=== PATIENT | female | born 1975 | race Caucasian/White ===

== ENCOUNTER 2019-09-28 03:44 | Observation (INO) ==
[2019-09-28] MEDS ORDERED: ONDANSETRON 4 MG/2 ML VIAL IV STA (04:08)
[2019-09-28] MEDS ORDERED: SODIUM CHLORIDE 0.9% 500 ML IV STA (04:08)
[2019-09-28 04:20] LABS: Basophils # 0.1 10*3/uL (0.0-0.2); Basophils % 0.7 % (0.0-0.8); Eosinophils # 0.1 10*3/uL (0.0-0.87); Eosinophils % 2.1 % (0.00-10.9); Hematocrit 29.6 VOL% (35.7-47.0); Hemoglobin 9.5 GM/DL (12.0-16.0); Immature Granulocytes % 0.4 %; Immature Granulocytes Absolute 0.03 #; Lymphocytes # 1.6 10*3/uL (1.4-4.0); Lymphocytes % 23.2 % (21.3-54.2); Mean Corpuscular HGB Conc 32.1 GM/DL (32-36); Mean Corpuscular Volume 90.5 FL (87-102); Mean Platelet Volume 8.9 FL (9.6-12.0); Monocytes % 17.9 % (1.7-12.7); Neutrophils % 55.7 % (38.7-73.9); Platelet Count 152 T/CUMM (130-400); Red Blood Count 3.27 MC/CUMM (3.8-5.5); Red Cell Distribution Width 14.6 % (9.3-17.3); White Blood Count 6.7 T/CUMM (4-12)
[2019-09-28 04:37] LABS: Albumin 1.6 G/DL (3.4-5.0); Bilirubin,Total 0.4 MG/DL (0.2-1.0); Calcium 7.6 MG/DL (8.5-10.1); Osmolality,Calculated 262.4 MOS/KG (273-304); Total Protein 6.3 G/DL (6.4-8.3)
[2019-09-28 05:23] LABS: Apearance,Urine CLOUDY (Clear); Bilirubin,Urine Negative (Negative); Blood, Urine Large mg/dL (Negative); Glucose,Urine (UA) Negative (Negative); Ketones,Urine Negative (Negative); Mucus,Urine Few /LPF (Occasional); Nitrite,Urine Negative (Negative); Protein,Urine >=500 MG/DL; RBC,Urine 129 /HPF (0-4); Urine Color Amber (Yellow); Urine Specific Gravity 1.016 (1.001-1.035); Urine Urobilinogen < 2.0 EU/DL (0.2-1.0); WBC,Urine 298 /HPF (0-6)
[2019-09-28] MEDS ORDERED: ACETAMINOPHEN 325 MG TABLET PO PRN (05:34)
[2019-09-28] MEDS ORDERED: ONDANSETRON 4 MG/2 ML VIAL IV PRN (05:34)
[2019-09-28] MEDS ORDERED: GLUCAGON 1 MG VIAL IM PRN (05:34)
[2019-09-28] MEDS ORDERED: DEXTROSE 50% 25 GM/50 ML VIAL IV PRN (05:34)
[2019-09-28] MEDS ORDERED: POTASSIUM CHLORIDE 20 MEQ/15 ML UDCUP PO ONE (05:42)
[2019-09-28] MEDS ORDERED: cefTRIAXone 1,000 MG in SODIUM CHLORIDE 0.9% 100 ML IV STA (05:42)
[2019-09-28] MEDS ORDERED: PROMETHAZINE 25 MG/1 ML VIAL IM PRN (05:45)
[2019-09-28 07:19] LABS: ABG Base Excess 6.1 MMOL/L (-2.5-2.5); ABG HCO3 29.9 MMOL/L (20-26); ABG Oxygen Saturation 91.5 % (95-100); ABG PCO2 52.7 MM HG (35-48); ABG PH 7.393 (7.35-7.45); ABG PO2 62.3 MM HG (80-95); ABG TCO2 29.7 MMOL/L (23-27); Allen Test Positive
[2019-09-28 08:43] LABS: Eosinophils 2 % (0-10); Hypochromasia 2+; Lymphocytes 22 % (20-55); Platelet Estimate Adequate; Polychromasia Slight; Schistocytes Slight; Segmented Neutrophils 63 % (50-85); Stomatocytes Slight; Total Cells Counted 100
[2019-09-28] MEDS ORDERED: PANTOPRAZOLE 40 MG TABLET PO SCH (09:00)
[2019-09-28] MEDS: ESCITALOPRAM 10 MG TABLET PO SCH (11:40)
[2019-09-28] MEDS: PANTOPRAZOLE 40 MG TABLET PO SCH ×2 (11:40→20:06)
[2019-09-28] MEDS: MULTIVITAMIN (CENTRUM) TABLET PO SCH (11:40)
[2019-09-28] MEDS ORDERED: hydrALAZINE 20 MG/1 ML VIAL IV PRN (13:14)
[2019-09-28] MEDS: FERROUS SULFATE 325 MG TABLET PO SCH ×2 (15:37→20:06)
[2019-09-28] MEDS: RIFAXIMIN 200 MG PO SCH ×2 (15:37→20:06)
[2019-09-28] MEDS: oxyCODONE/ACETAMINOPHEN 5-325 MG TABLET PO PRN ×2 (19:55→23:56)
[2019-09-29] MEDS: oxyCODONE/ACETAMINOPHEN 5-325 MG TABLET PO PRN (04:02)
[2019-09-29] MEDS ORDERED: cefTRIAXone 1,000 MG in SODIUM CHLORIDE 0.9% 100 ML IV SCH (06:30)
[2019-09-29 07:13] LABS: Alanine Aminotransferase 14 U/L (13-56); Albumin 1.6 G/DL (3.4-5.0); Alkaline Phosphatase 99 U/L (45-117); Aspartate Amino Transferase 23 U/L (0-37); Bilirubin,Total < 0.39 MG/DL (0.2-1.0); Blood Urea Nitrogen 16 MG/DL (7-18); Calcium 7.8 MG/DL (8.5-10.1); Estimated Glom Filtration Rate 19 ML/MIN; Glucose 70 MG/DL (74-106); Osmolality,Calculated 260.7 MOS/KG (273-304); Total Protein 5.9 G/DL (6.4-8.3)
[2019-09-29 07:21] LABS: Basophils # 0.1 10*3/uL (0.0-0.2); Basophils % 1.4 % (0.0-0.8); Eosinophils # 0.2 10*3/uL (0.0-0.87); Eosinophils % 3.7 % (0.00-10.9); Hematocrit 30.4 VOL% (35.7-47.0); Hemoglobin 9.5 GM/DL (12.0-16.0); Immature Granulocytes % 0.5 %; Immature Granulocytes Absolute 0.03 #; Lymphocytes # 1.5 10*3/uL (1.4-4.0); Lymphocytes % 25.8 % (21.3-54.2); Mean Corpuscular HGB Conc 31.3 GM/DL (32-36); Mean Corpuscular Volume 91.3 FL (87-102); Mean Platelet Volume 8.8 FL (9.6-12.0); Monocytes % 15.9 % (1.7-12.7); Neutrophils % 52.7 % (38.7-73.9); Platelet Count 175 T/CUMM (130-400); Red Blood Count 3.33 MC/CUMM (3.8-5.5); Red Cell Distribution Width 14.6 % (9.3-17.3); White Blood Count 5.7 T/CUMM (4-12)
[2019-09-29 08:33] LABS: Anisocytosis 1+; Band Neutrophils 4 % (0-10); Eosinophils 3 % (0-10); Hypochromasia 2+; Lymphocytes 26 % (20-55); Macrocytosis 1+; Platelet Estimate Normal; Segmented Neutrophils 53 % (50-85); Total Cells Counted 100
[2019-09-29] MEDS: MULTIVITAMIN (CENTRUM) TABLET PO SCH (08:57)
[2019-09-29] MEDS: FERROUS SULFATE 325 MG TABLET PO SCH ×2 (08:57→15:46)
[2019-09-29] MEDS: ESCITALOPRAM 10 MG TABLET PO SCH (08:58)
[2019-09-29] MEDS: PANTOPRAZOLE 40 MG TABLET PO SCH (08:58)
[2019-09-29] MEDS ORDERED: CETIRIZINE 10 MG TABLET PO SCH (09:00)
[2019-09-29] MEDS ORDERED: CIPROFLOXACIN 500 MG TABLET PO SCH (09:00)
[2019-09-29] MEDS: RIFAXIMIN 200 MG PO SCH ×2 (10:28→15:46)
[2019-09-29] MEDS ORDERED: POTASSIUM CHLORIDE 20 MEQ TABLET PO ONE (10:43)
[2019-09-29 16:13] VITALS: BP 109/61
== END 2019-09-29 18:18 | disposition left against medical advice (07) ==
LOC: EDBD → EDUNIT# → N.EDINP 03:44 → N.ED 03:44 → SUATTDRO 07:43 → N.EDINP 09:35 → N.TELES 09:50
PROVIDERS: ADMIT Internal Medicine; ATTEND Internal Medicine

== ENCOUNTER 2019-10-02 22:28 | Observation (INO) ==
[2019-10-03] MEDS ORDERED: HYDROmorphone 2 MG/1 ML VIAL IV STA (02:19)
[2019-10-03] MEDS ORDERED: PANTOPRAZOLE 40 MG VIAL IV STA (02:19)
[2019-10-03] MEDS ORDERED: hydrALAZINE 20 MG/1 ML VIAL IV STA (02:19)
[2019-10-03] MEDS ORDERED: ONDANSETRON 4 MG/2 ML VIAL IV STA (02:19)
[2019-10-03 02:54] LABS: Basophils % 0.5 % (0.0-0.8); Eosinophils # 0.1 10*3/uL (0.0-0.87); Eosinophils % 1.4 % (0.00-10.9); Hematocrit 32.4 VOL% (35.7-47.0); Hemoglobin 10.5 GM/DL (12.0-16.0); Immature Granulocytes % 0.6 %; Immature Granulocytes Absolute 0.05 #; Lymphocytes # 1.1 10*3/uL (1.4-4.0); Lymphocytes % 13.4 % (21.3-54.2); Mean Corpuscular HGB Conc 32.4 GM/DL (32-36); Mean Corpuscular Volume 87.3 FL (87-102); Mean Platelet Volume 8.6 FL (9.6-12.0); Neutrophils % 72.1 % (38.7-73.9); Platelet Count 159 T/CUMM (130-400); Red Blood Count 3.71 MC/CUMM (3.8-5.5); Red Cell Distribution Width 14.5 % (9.3-17.3); White Blood Count 7.8 T/CUMM (4-12)
[2019-10-03 03:15] LABS: Alanine Aminotransferase 18 U/L (13-56); Albumin 1.9 G/DL (3.4-5.0); Alkaline Phosphatase 172 U/L (45-117); Amylase 55 U/L (25-115); Aspartate Amino Transferase 37 U/L (0-37); Blood Urea Nitrogen 36 MG/DL (7-18); Calcium 7.9 MG/DL (8.5-10.1); Estimated Glom Filtration Rate 12 ML/MIN; Glucose 82 MG/DL (74-106); Osmolality,Calculated 257.5 MOS/KG (273-304); Total Protein 6.7 G/DL (6.4-8.3)
[2019-10-03] MEDS ORDERED: DEXTROSE 50% 25 GM/50 ML VIAL IV PRN (05:45)
[2019-10-03] MEDS ORDERED: ACETAMINOPHEN 325 MG TABLET PO PRN (05:45)
[2019-10-03] MEDS ORDERED: guaiFENesin/DM ER 600-30 MG TABLET PO PRN (05:45)
[2019-10-03] MEDS ORDERED: GLUCAGON 1 MG VIAL IM PRN (05:45)
[2019-10-03] MEDS ORDERED: diphenhydrAMINE CAP 25 MG CAPSULE PO PRN (05:45)
[2019-10-03] MEDS ORDERED: hydrALAZINE 20 MG/1 ML VIAL IV PRN (05:45)
[2019-10-03] MEDS ORDERED: NICOTINE 21 MG/24 HR PATCH TRANSDERM PRN (05:45)
[2019-10-03] MEDS ORDERED: SODIUM CHLORIDE 0.9% 1,000 ML IV SCH (06:00)
[2019-10-03] MEDS: MORPHINE 4 MG/1 ML VIAL IV PRN ×2 (08:28→12:36)
[2019-10-03] MEDS: ONDANSETRON 4 MG/2 ML VIAL IV PRN ×4 (08:31→20:27)
[2019-10-03 08:46] LABS: INR 1.1; PT Patient Result 11.7 SECS (9.8-11.9)
[2019-10-03 10:07] LABS: Amorphous Crystals,Urine Few /HPF (Few); Apearance,Urine Slightly Hazy (Clear); Bacteria,Urine Occasional /HPF (Few); Bilirubin,Urine Negative (Negative); Blood, Urine Moderate mg/dL (Negative); Glucose,Urine (UA) Negative (Negative); Ketones,Urine Negative (Negative); Mucus,Urine Occasional /LPF (Occasional); Nitrite,Urine Negative (Negative); Protein,Urine 100 MG/DL; RBC,Urine 21 /HPF (0-4); Squamous Epithelial Cell,Urine Occasional /HPF (0-10); Urine Color Yellow (Yellow); Urine Specific Gravity 1.008 (1.001-1.035); Urine Urobilinogen < 2.0 EU/DL (0.2-1.0); WBC,Urine <1 /HPF (0-6)
[2019-10-03 10:13] LABS: Barbiturates Screen,Urine Negative (Negative); Benzodiazepines Screen,Urine Positive (Negative); Cannabinoid Screen,Urine Negative (Negative); Opiate Screen,Urine Negative (Negative); Phencyclidine Screen,Urine Negative (Negative)
[2019-10-03 14:57] LABS: Lymphocytes,Pleural Fluid 79 %; Monocytes,Pleural Fluid 9 %; Neutrophils,Pleural Fluid 12 %; RBC,Pleural Fluid 17935 T/CUMM
[2019-10-03] MEDS: HYDROmorphone 2 MG/1 ML VIAL IV PRN ×2 (16:26→20:28)
[2019-10-04] MEDS: ONDANSETRON 4 MG/2 ML VIAL IV PRN ×2 (00:59→21:12)
[2019-10-04] MEDS: HYDROmorphone 2 MG/1 ML VIAL IV PRN ×4 (01:00→21:13)
[2019-10-04 05:25] LABS: Basophils # 0.1 10*3/uL (0.0-0.2); Basophils % 0.4 % (0.0-0.8); Eosinophils # 0.1 10*3/uL (0.0-0.87); Eosinophils % 0.4 % (0.00-10.9); Hematocrit 31.4 VOL% (35.7-47.0); Immature Granulocytes Absolute 0.11 #; Lymphocytes # 0.6 10*3/uL (1.4-4.0); Lymphocytes % 5.5 % (21.3-54.2); Mean Corpuscular HGB Conc 31.8 GM/DL (32-36); Mean Platelet Volume 8.3 FL (9.6-12.0); Neutrophils % 84.7 % (38.7-73.9); Platelet Count 216 T/CUMM (130-400); Red Blood Count 3.53 MC/CUMM (3.8-5.5); Red Cell Distribution Width 14.7 % (9.3-17.3); White Blood Count 11.2 T/CUMM (4-12)
[2019-10-04 05:45] LABS: Calcium 8.2 MG/DL (8.5-10.1); Osmolality,Calculated 264.1 MOS/KG (273-304)
[2019-10-04 05:53] LABS: Albumin 1.8 G/DL (3.4-5.0); Bilirubin,Total 0.7 MG/DL (0.2-1.0); Calcium 8.1 MG/DL (8.5-10.1); Osmolality,Calculated 264.1 MOS/KG (273-304); Total Protein 6.8 G/DL (6.4-8.3)
[2019-10-04] MEDS ORDERED: SODIUM CHLORIDE 0.65% NASAL SPRAY 45 ML BOTTLE BOTH NARES PRN (06:53)
[2019-10-04] MEDS ORDERED: HEPARIN 10,000 UNIT/10 ML VIAL IV PRN (13:11)
[2019-10-04] MEDS: ALPRAZolam 0.25 MG TABLET PO PRN ×2 (16:46→20:31)
[2019-10-04] MEDS: RIFAXIMIN 200 MG PO SCH (20:28)
[2019-10-04] MEDS: FERROUS SULFATE 325 MG TABLET PO SCH (20:28)
[2019-10-04] MEDS: PANTOPRAZOLE 40 MG TABLET PO SCH (20:28)
[2019-10-04] MEDS ORDERED: hydrALAZINE 10 MG TABLET PO SCH (21:00)
[2019-10-05] MEDS: ALPRAZolam 0.25 MG TABLET PO PRN (02:54)
[2019-10-05] MEDS: ONDANSETRON 4 MG/2 ML VIAL IV PRN (03:59)
[2019-10-05] MEDS: HYDROmorphone 2 MG/1 ML VIAL IV PRN ×2 (04:00→08:45)
[2019-10-05 04:19] VITALS: BP 123/73
[2019-10-05 06:46] LABS: Calcium 7.9 MG/DL (8.5-10.1); Osmolality,Calculated 266.4 MOS/KG (273-304)
[2019-10-05] MEDS: FERROUS SULFATE 325 MG TABLET PO SCH (08:41)
[2019-10-05] MEDS: PANTOPRAZOLE 40 MG TABLET PO SCH (08:41)
[2019-10-05] MEDS: RIFAXIMIN 200 MG PO SCH (08:43)
[2019-10-05] MEDS ORDERED: CHOLECALCIFEROL 400 UNIT TABLET PO SCH (09:00)
[2019-10-05] MEDS ORDERED: hydrALAZINE 10 MG TABLET PO SCH (09:00)
[2019-10-05] MEDS ORDERED: ESCITALOPRAM 10 MG TABLET PO SCH (09:00)
[2019-10-05] MEDS ORDERED: oxyCODONE IR 5 MG TABLET PO PRN (09:32)
== END 2019-10-05 11:23 | disposition home health service (06) ==
LOC: N.EDINP 22:28 → N.ED 22:28 → N.3E 10-03 06:39
PROVIDERS: ADMIT Hospitalist; ATTEND Hospitalist
PROC: IRTHORA (2019-10-03 09:40)

== ENCOUNTER 2019-10-30 00:53 | Inpatient (IN) ==
[2019-10-30] MEDS ORDERED: ALBUTEROL/IPRATROPIUM 3 ML NEB RESP TX STA (01:16)
[2019-10-30] MEDS ORDERED: ONDANSETRON 4 MG/2 ML VIAL IV STA (01:16)
[2019-10-30] MEDS ORDERED: hydrALAZINE 20 MG/1 ML VIAL IV STA ×2 (01:16→03:28)
[2019-10-30] MEDS ORDERED: FUROSEMIDE 100 MG/10 ML VIAL IV STA (01:16)
[2019-10-30] MEDS ORDERED: methylPREDNISolone SOD SUC 125 MG/2 ML VIAL IV STA (01:16)
[2019-10-30 02:57] LABS: INR 1.1; PT Patient Result 11.9 SECS (9.8-11.9)
[2019-10-30 03:05] LABS: Basophils # 0.1 10*3/uL (0.0-0.2); Basophils % 0.5 % (0.0-0.8); Eosinophils % 0.3 % (0.00-10.9); Hematocrit 28.4 VOL% (35.7-47.0); Hemoglobin 8.9 GM/DL (12.0-16.0); Immature Granulocytes % 2.8 %; Immature Granulocytes Absolute 0.29 #; Lymphocytes # 1.2 10*3/uL (1.4-4.0); Lymphocytes % 11.9 % (21.3-54.2); Mean Corpuscular HGB Conc 31.3 GM/DL (32-36); Mean Corpuscular Volume 85.8 FL (87-102); Mean Platelet Volume 8.4 FL (9.6-12.0); Monocytes % 6.9 % (1.7-12.7); NRBC # 0.03 10*3/uL; Neutrophils % 77.6 % (38.7-73.9); Platelet Count 203 T/CUMM (130-400); Red Blood Count 3.31 MC/CUMM (3.8-5.5); Red Cell Distribution Width 18.5 % (9.3-17.3); White Blood Count 10.2 T/CUMM (4-12)
[2019-10-30 03:06] LABS: Alanine Aminotransferase 12 U/L (13-56); Albumin 1.8 G/DL (3.4-5.0); Alkaline Phosphatase 135 U/L (45-117); Aspartate Amino Transferase 27 U/L (0-37); Blood Urea Nitrogen 22 MG/DL (7-18); Calcium 8.4 MG/DL (8.5-10.1); Estimated Glom Filtration Rate 15 ML/MIN; Glucose 83 MG/DL (74-106); Osmolality,Calculated 259.9 MOS/KG (273-304); Total Protein 6.8 G/DL (6.4-8.3)
[2019-10-30] MEDS ORDERED: KETOROLAC 30 MG/1 ML VIAL IV STA (03:08)
[2019-10-30] MEDS ORDERED: HYDROmorphone 2 MG/1 ML VIAL IV ONE (03:08)
[2019-10-30] MEDS ORDERED: GLUCAGON 1 MG VIAL IM PRN (03:45)
[2019-10-30] MEDS ORDERED: DEXTROSE 50% 25 GM/50 ML VIAL IV PRN (03:45)
[2019-10-30] MEDS ORDERED: hydrALAZINE 20 MG/1 ML VIAL IV PRN (04:15)
[2019-10-30] MEDS ORDERED: NITROGLYCERIN 0.4 MG/HR PATCH TRANSDERM STA (04:56)
[2019-10-30] MEDS: HYDROmorphone 2 MG/1 ML VIAL IV PRN ×4 (07:50→21:53)
[2019-10-30 08:00] LABS: Barbiturates Screen,Urine Negative (Negative); Benzodiazepines Screen,Urine Positive (Negative); Cannabinoid Screen,Urine Positive (Negative); Opiate Screen,Urine Negative (Negative); Phencyclidine Screen,Urine Negative (Negative)
[2019-10-30 08:05] LABS: Apearance,Urine Slightly Hazy (Clear); Bilirubin,Urine Negative (Negative); Blood, Urine Moderate mg/dL (Negative); Glucose,Urine (UA) Negative (Negative); Hyaline Casts,Urine 13 /LPF (0-3); Ketones,Urine Negative (Negative); Mucus,Urine Occasional /LPF (Occasional); Nitrite,Urine Negative (Negative); Protein,Urine >=500 MG/DL; RBC,Urine 193 /HPF (0-4); Squamous Epithelial Cell,Urine Occasional /HPF (0-10); Transitional Epi Cells,Urine Occasional /HPF (<1); Urine Color Amber (Yellow); Urine Specific Gravity 1.016 (1.001-1.035); Urine Urobilinogen < 2.0 EU/DL (0.2-1.0); WBC,Urine 36 /HPF (0-6)
[2019-10-30] MEDS: LIDOCAINE 5% PATCH TRANSDERM SCH (10:30)
[2019-10-30] MEDS: ESCITALOPRAM 10 MG TABLET PO SCH (10:30)
[2019-10-30] MEDS: MULTIVITAMIN (CENTRUM) TABLET PO SCH (10:30)
[2019-10-30] MEDS: LACTULOSE 20 GM/30 ML UDCUP PO SCH ×3 (10:30→21:45)
[2019-10-30] MEDS: FERROUS SULFATE 325 MG TABLET PO SCH ×3 (10:30→21:45)
[2019-10-30] MEDS: ENOXAPARIN 30 MG/0.3 ML SYRINGE SUBCUT SCH (10:30)
[2019-10-30] MEDS: RIFAXIMIN 200 MG PO SCH ×3 (10:58→21:24)
[2019-10-30] MEDS ORDERED: HEPARIN 10,000 UNIT/10 ML VIAL IV SCH (17:30)
[2019-10-30] MEDS: traZODone 50 MG TABLET PO SCH (21:45)
[2019-10-31] MEDS: HYDROmorphone 2 MG/1 ML VIAL IV PRN ×5 (03:41→21:34)
[2019-10-31 06:00] LABS: Basophils # 0.1 10*3/uL (0.0-0.2); Basophils % 0.5 % (0.0-0.8); Eosinophils # 0.2 10*3/uL (0.0-0.87); Eosinophils % 1.3 % (0.00-10.9); Hematocrit 24.3 VOL% (35.7-47.0); Hemoglobin 7.4 GM/DL (12.0-16.0); Immature Granulocytes % 1.7 %; Immature Granulocytes Absolute 0.19 #; Lymphocytes # 1.6 10*3/uL (1.4-4.0); Lymphocytes % 14.1 % (21.3-54.2); Mean Corpuscular HGB Conc 30.5 GM/DL (32-36); Mean Corpuscular Volume 90.3 FL (87-102); Mean Platelet Volume 8.1 FL (9.6-12.0); Monocytes % 14.5 % (1.7-12.7); NRBC # 0.03 10*3/uL; Neutrophils % 67.9 % (38.7-73.9); Platelet Count 219 T/CUMM (130-400); Red Blood Count 2.69 MC/CUMM (3.8-5.5); Red Cell Distribution Width 19.2 % (9.3-17.3); White Blood Count 11.3 T/CUMM (4-12)
[2019-10-31 06:29] LABS: Albumin 1.8 G/DL (3.4-5.0); Bilirubin,Total 0.7 MG/DL (0.2-1.0); Calcium 8.8 MG/DL (8.5-10.1); Osmolality,Calculated 270.1 MOS/KG (273-304); Total Protein 6.8 G/DL (6.4-8.3)
[2019-10-31] MEDS ORDERED: POTASSIUM CHLORIDE 20 MEQ/15 ML UDCUP PO ONE (07:44)
[2019-10-31] MEDS: FERROUS SULFATE 325 MG TABLET PO SCH ×3 (08:48→20:44)
[2019-10-31] MEDS: ESCITALOPRAM 10 MG TABLET PO SCH (08:48)
[2019-10-31] MEDS: MULTIVITAMIN (CENTRUM) TABLET PO SCH (08:48)
[2019-10-31] MEDS: ENOXAPARIN 30 MG/0.3 ML SYRINGE SUBCUT SCH (08:49)
[2019-10-31] MEDS: LACTULOSE 20 GM/30 ML UDCUP PO SCH ×3 (08:49→20:44)
[2019-10-31] MEDS: RIFAXIMIN 200 MG PO SCH ×3 (08:50→20:45)
[2019-10-31] MEDS: LIDOCAINE 5% PATCH TRANSDERM SCH (09:21)
[2019-10-31] MEDS ORDERED: SODIUM CHLORIDE 0.9% 1,000 ML IV PRN ×2 (09:38→15:08)
[2019-10-31] MEDS ORDERED: POTASSIUM CHLORIDE 20 MEQ TABLET PO PRN (09:39)
[2019-10-31] MEDS ORDERED: POTASSIUM CHLORIDE RIDER 10 MEQ in PREMIX 1 EACH IV PRN (09:39)
[2019-10-31] MEDS ORDERED: EPOETIN ALFA-EPBX 10,000 UNIT/ML VIAL IV PRN (12:32)
[2019-10-31] MEDS: cefTRIAXone 1,000 MG in SYRINGE 1 EACH IV SCH (12:57)
[2019-10-31 14:10] LABS: Neutrophils,Peritoneal Fluid 4 %
[2019-10-31 14:11] LABS: RBC,Peritoneal Fluid 183 T/CUMM
[2019-10-31] MEDS: traZODone 50 MG TABLET PO SCH (20:44)
[2019-11-01 00:17] LABS: Hematocrit 26.1 VOL% (35.7-47.0)
[2019-11-01] MEDS: HYDROmorphone 2 MG/1 ML VIAL IV PRN ×4 (01:34→15:09)
[2019-11-01] MEDS: ENOXAPARIN 30 MG/0.3 ML SYRINGE SUBCUT SCH (08:31)
[2019-11-01] MEDS: LIDOCAINE 5% PATCH TRANSDERM SCH (09:10)
[2019-11-01 09:20] LABS: Lymphocytes,Pleural Fluid 93 %; Monocytes,Pleural Fluid 1 %; Neutrophils,Pleural Fluid 6 %
[2019-11-01] MEDS: RIFAXIMIN 200 MG PO SCH ×2 (09:23→15:09)
[2019-11-01 09:25] LABS: RBC,Pleural Fluid 9059 T/CUMM
[2019-11-01] MEDS: LACTULOSE 20 GM/30 ML UDCUP PO SCH ×2 (09:43→15:09)
[2019-11-01] MEDS: ESCITALOPRAM 10 MG TABLET PO SCH (09:43)
[2019-11-01] MEDS: FERROUS SULFATE 325 MG TABLET PO SCH ×2 (09:43→15:09)
[2019-11-01] MEDS: MULTIVITAMIN (CENTRUM) TABLET PO SCH (09:43)
[2019-11-01] MEDS: cefTRIAXone 1,000 MG in SYRINGE 1 EACH IV SCH (10:05)
[2019-11-01] MEDS ORDERED: FOSFOMYCIN 3 GM PACK PO ONE (12:00)
[2019-11-01 16:56] VITALS: BP 158/71
== END 2019-11-01 17:25 | disposition home or self-care (01) | DRG 640 ==
LOC: EDBD → EDUNIT# → N.ED 00:53 → SUATTDRO 03:45 → N.EDINP 03:45 → N.TELEN 14:11
PROVIDERS: ADMIT Family Medicine; ATTEND Internal Medicine

== ENCOUNTER 2020-04-16 14:10 | Inpatient (IN) ==
[2020-04-16] MEDS ORDERED: hydrALAZINE 20 MG/1 ML VIAL IV STA (15:17)
[2020-04-16 15:53] LABS: Basophils # 0.1 10*3/uL (0.0-0.2); Basophils % 0.5 % (0.0-0.8); Eosinophils # 0.1 10*3/uL (0.0-0.87); Eosinophils % 1.4 % (0.00-10.9); Hematocrit 28.6 VOL% (35.7-47.0); Hemoglobin 9.2 GM/DL (12.0-16.0); Immature Granulocytes % 0.5 %; Immature Granulocytes Absolute 0.05 #; Lymphocytes # 0.9 10*3/uL (1.4-4.0); Lymphocytes % 9.2 % (21.3-54.2); Mean Corpuscular HGB Conc 32.2 GM/DL (32-36); Mean Corpuscular Volume 83.9 FL (87-102); Mean Platelet Volume 8.1 FL (9.6-12.0); Monocytes % 7.9 % (1.7-12.7); Neutrophils % 80.5 % (38.7-73.9); Platelet Count 106 T/CUMM (130-400); Red Blood Count 3.41 MC/CUMM (3.8-5.5); Red Cell Distribution Width 17.4 % (9.3-17.3); White Blood Count 9.5 T/CUMM (4-12)
[2020-04-16] MEDS ORDERED: METOPROLOL TARTRATE 5 MG/5 ML VIAL IV ONE (15:57)
[2020-04-16 15:58] LABS: Albumin 2.4 G/DL (3.4-5.0); Bilirubin,Total 0.5 MG/DL (0.2-1.0); Calcium 9.8 MG/DL (8.5-10.1); Osmolality,Calculated 285.5 MOS/KG (273-304); Potassium 4.3 MMOL/L (3.5-5.1); Total Protein 8.6 G/DL (6.4-8.3)
[2020-04-16] MEDS ORDERED: LORazepam 2 MG/1 ML VIAL ONE (15:58)
[2020-04-16] MEDS ORDERED: SODIUM CHLORIDE 0.9% 500 ML IV STA (16:01)
[2020-04-16 16:03] LABS: INR 1.1; PT Patient Result 11.6 SECS (9.8-11.9)
[2020-04-16] MEDS ORDERED: METOPROLOL TARTRATE 5 MG/5 ML VIAL IV STA (16:08)
[2020-04-16] MEDS ORDERED: LORazepam 2 MG/1 ML VIAL IV STA (16:08)
[2020-04-16] MEDS ORDERED: FUROSEMIDE 100 MG/10 ML VIAL IV STA (16:43)
[2020-04-16] MEDS ORDERED: lisinopriL 10 MG TABLET PO STA (16:44)
[2020-04-16] MEDS ORDERED: VANCOMYCIN INJ 1,000 MG in SODIUM CHLORIDE 0.9% 250 ML IV STA (16:47)
[2020-04-16] MEDS ORDERED: ALBUTEROL 2.5 MG/3 ML NEB RESP TX PRN (16:52)
[2020-04-16] MEDS ORDERED: PROMETHAZINE 25 MG/1 ML VIAL IM PRN (16:52)
[2020-04-16] MEDS ORDERED: HEPARIN 10,000 UNIT/10 ML VIAL IV SCH (19:15)
[2020-04-16] MEDS: ceFAZolin 1,000 MG in SYRINGE 1 EACH IV SCH (19:42)
[2020-04-16] MEDS: oxyCODONE/ACETAMINOPHEN 5-325 MG TABLET PO PRN (21:43)
[2020-04-17] MEDS: ceFAZolin 1,000 MG in SYRINGE 1 EACH IV SCH ×5 (00:35→22:51)
[2020-04-17] MEDS: RIFAXIMIN 200 MG PO SCH ×4 (02:10→21:57)
[2020-04-17] MEDS: PANTOPRAZOLE 40 MG VIAL IV SCH ×2 (02:10→16:37)
[2020-04-17 03:56] LABS: Basophils # 0.1 10*3/uL (0.0-0.2); Basophils % 0.9 % (0.0-0.8); Eosinophils # 0.2 10*3/uL (0.0-0.87); Eosinophils % 2.2 % (0.00-10.9); Hematocrit 26.9 VOL% (35.7-47.0); Hemoglobin 8.5 GM/DL (12.0-16.0); Immature Granulocytes % 0.9 %; Immature Granulocytes Absolute 0.08 #; Lymphocytes # 1.4 10*3/uL (1.4-4.0); Lymphocytes % 15.2 % (21.3-54.2); Mean Corpuscular HGB Conc 31.6 GM/DL (32-36); Mean Corpuscular Volume 85.4 FL (87-102); Mean Platelet Volume 8.1 FL (9.6-12.0); Monocytes % 14.2 % (1.7-12.7); Neutrophils % 66.6 % (38.7-73.9); Platelet Count 127 T/CUMM (130-400); Red Blood Count 3.15 MC/CUMM (3.8-5.5); Red Cell Distribution Width 17.6 % (9.3-17.3); White Blood Count 9.1 T/CUMM (4-12)
[2020-04-17] MEDS: oxyCODONE/ACETAMINOPHEN 5-325 MG TABLET PO PRN ×2 (04:35→09:36)
[2020-04-17 04:55] LABS: Alanine Aminotransferase 9 U/L (13-56); Alkaline Phosphatase 87 U/L (45-117); Aspartate Amino Transferase 22 U/L (0-37); Bilirubin,Total < 0.39 MG/DL (0.2-1.0); Blood Urea Nitrogen 30 MG/DL (7-18); Calcium 8.3 MG/DL (8.5-10.1); Carbon Dioxide 21 MMOL/L (21-32); Estimated Glom Filtration Rate 9 ML/MIN; Glucose 70 MG/DL (74-106); Osmolality,Calculated 271.2 MOS/KG (273-304); Potassium 3.6 MMOL/L (3.5-5.1); Sodium 134 MMOL/L (136-145); Total Protein 7.1 G/DL (6.4-8.3)
[2020-04-17 05:11] LABS: Immunoglobulin A 385 MG/DL (70-400); Immunoglobulin G 1780 MG/DL (700-1600); Immunoglobulin M 120 MG/DL (40-230)
[2020-04-17 07:37] LABS: Total Protein (Chem) 7.2 G/DL (6.4-8.3)
[2020-04-17 08:45] LABS: Immunoglobulin A (Chem) 385 MG/DL (70-400); Immunoglobulin G (Chem) 1780 MG/DL (700-1600); Immunoglobulin M (Chem) 120 MG/DL (40-230)
[2020-04-17 09:01] LABS: Albumin (SPE) 3.1 G/DL (3.2-5.3); Albumin (SPE) Rel % 43.6 %; Alpha 1 (SPE) 0.4 G/DL (0.1-0.4); Alpha 1 (SPE) Rel % 5.6 %; Alpha 2 (SPE) Rel % 13.7 %; Beta (SPE) 0.7 G/DL (0.5-1.1); Beta (SPE) Rel % 10.3 %; Gamma (SPE) 1.9 G/DL (0.7-1.7); Gamma (SPE) Rel % 26.8 %
[2020-04-17] MEDS: lisinopriL 20 MG TABLET PO SCH (09:30)
[2020-04-17 11:23] LABS: Immuno Free Light Chain Kappa 22.25 MG/DL (0.33-1.94); Immuno Free Light Chain Lambda 21.62 MG/DL (0.57-2.63); Immuno Free Light Chain Ratio 1.03 MG/DL (0.26-1.65)
[2020-04-17] MEDS ORDERED: VANCOMYCIN INJ 400 MG in SODIUM CHLORIDE 0.9% 100 ML IV PRN (17:00)
[2020-04-17] MEDS ORDERED: traZODone 50 MG TABLET PO SCH (21:00)
[2020-04-17] MEDS ORDERED: MIRTAZAPINE 15 MG TABLET PO SCH (21:00)
[2020-04-18] MEDS: ceFAZolin 1,000 MG in SYRINGE 1 EACH IV SCH (06:24)
[2020-04-18 06:29] LABS: Basophils # 0.1 10*3/uL (0.0-0.2); Basophils % 0.8 % (0.0-0.8); Eosinophils # 0.4 10*3/uL (0.0-0.87); Eosinophils % 4.9 % (0.00-10.9); Hematocrit 26.5 VOL% (35.7-47.0); Hemoglobin 8.4 GM/DL (12.0-16.0); Immature Granulocytes Absolute 0.09 #; Lymphocytes # 1.3 10*3/uL (1.4-4.0); Lymphocytes % 14.8 % (21.3-54.2); Mean Corpuscular HGB Conc 31.7 GM/DL (32-36); Mean Corpuscular Volume 85.2 FL (87-102); Mean Platelet Volume 9.3 FL (9.6-12.0); Monocytes % 17.6 % (1.7-12.7); Neutrophils % 60.9 % (38.7-73.9); Platelet Count 106 T/CUMM (130-400); Red Blood Count 3.11 MC/CUMM (3.8-5.5); Red Cell Distribution Width 17.7 % (9.3-17.3); White Blood Count 8.9 T/CUMM (4-12)
[2020-04-18 06:47] LABS: Eosinophils 6 % (0-10); Hypochromasia 1+; Lymphocytes 12 % (20-55); Microcytosis 1+; Platelet Estimate Decreased; Segmented Neutrophils 73 % (50-85); Total Cells Counted 100
[2020-04-18 06:49] LABS: Calcium 8.2 MG/DL (8.5-10.1); Osmolality,Calculated 277.4 MOS/KG (273-304); Potassium 3.6 MMOL/L (3.5-5.1)
[2020-04-18] MEDS ORDERED: VANCOMYCIN INJ 500 MG in SODIUM CHLORIDE 0.9% 100 ML IV PRN (07:49)
[2020-04-18] MEDS: lisinopriL 20 MG TABLET PO SCH (08:04)
[2020-04-18] MEDS: RIFAXIMIN 200 MG PO SCH ×2 (08:04→14:24)
[2020-04-18 15:52] VITALS: BP 119/86
[2020-04-18] MEDS: PANTOPRAZOLE 40 MG VIAL IV SCH (16:08)
[2020-04-18] MEDS ORDERED: ceFAZolin 1,000 MG in SYRINGE 1 EACH IV SCH (17:00)
[2020-04-18] MEDS ORDERED: VANCOMYCIN INJ 750 MG in SODIUM CHLORIDE 0.9% 250 ML IV ONE (17:00)
[2020-04-18 18:41] LABS: CDT Result Negative (Negative); CDT Specimen Source STOOL
[2020-04-20 09:44] LABS: Albumin (UPER) 294.1 MG/DL; Albumin (UPER) Rel% 66.4 %; Alpha 1 (UPER) 29.7 MG/DL; Alpha 1 (UPER) Rel% 6.7 %; Alpha 2 (UPER) 14.2 MG/DL; Alpha 2 (UPER) Rel % 3.2 %; Beta (UPER) 33.2 MG/DL; Beta (UPER) Rel % 7.5 %; Gamma (UPER) 71.8 MG/DL; Gamma (UPER) Rel % 16.2 %
== END 2020-04-18 16:37 | disposition home or self-care (01) | DRG 640 ==
LOC: N.ED 14:10 → SUATTDRO 16:52 → N.EDINP 16:52 → N.ICU 21:50 → N.5E 04-17 12:57
PROVIDERS: ADMIT Internal Medicine; ATTEND Internal Medicine

== ENCOUNTER 2020-04-19 09:48 | Inpatient (IN) ==
[2020-04-19] MEDS ORDERED: DEXTROSE 50% 25 GM/50 ML VIAL IV PRN (12:01)
[2020-04-19] MEDS ORDERED: GLUCAGON 1 MG VIAL IM PRN (12:01)
[2020-04-19 12:32] LABS: Basophils % 0.2 % (0.0-0.8); Eosinophils # 0.2 10*3/uL (0.0-0.87); Eosinophils % 1.9 % (0.00-10.9); Hematocrit 27.8 VOL% (35.7-47.0); Hemoglobin 8.6 GM/DL (12.0-16.0); Immature Granulocytes % 1.2 %; Immature Granulocytes Absolute 0.15 #; Lymphocytes # 1.4 10*3/uL (1.4-4.0); Lymphocytes % 11.1 % (21.3-54.2); Mean Corpuscular HGB Conc 30.9 GM/DL (32-36); Mean Corpuscular Volume 87.4 FL (87-102); Mean Platelet Volume 9.6 FL (9.6-12.0); Monocytes % 10.7 % (1.7-12.7); Neutrophils % 74.9 % (38.7-73.9); Platelet Count 146 T/CUMM (130-400); Red Blood Count 3.18 MC/CUMM (3.8-5.5); Red Cell Distribution Width 18.2 % (9.3-17.3); White Blood Count 12.6 T/CUMM (4-12)
[2020-04-19 12:50] LABS: Alanine Aminotransferase < 6 U/L (13-56); Albumin 2.2 G/DL (3.4-5.0); Alkaline Phosphatase 80 U/L (45-117); Aspartate Amino Transferase 24 U/L (0-37); Bilirubin,Total < 0.39 MG/DL (0.2-1.0); Blood Urea Nitrogen 31 MG/DL (7-18); Calcium 8.9 MG/DL (8.5-10.1); Carbon Dioxide 24 MMOL/L (21-32); Estimated Glom Filtration Rate 9 ML/MIN; Glucose 81 MG/DL (74-106); Osmolality,Calculated 273.2 MOS/KG (273-304); Potassium 4.3 MMOL/L (3.5-5.1); Sodium 134 MMOL/L (136-145); Total Protein 7.6 G/DL (6.4-8.3)
[2020-04-19] MEDS: ENOXAPARIN 30 MG/0.3 ML SYRINGE SUBCUT SCH (15:12)
[2020-04-19] MEDS: METHOCARBAMOL 500 MG TABLET PO PRN ×2 (15:12→20:25)
[2020-04-19] MEDS: ACETAMINOPHEN 325 MG TABLET PO PRN ×2 (17:20→20:26)
[2020-04-19] MEDS: PANTOPRAZOLE 40 MG TABLET PO SCH (20:26)
[2020-04-20] MEDS: ACETAMINOPHEN 325 MG TABLET PO PRN ×4 (00:07→20:39)
[2020-04-20] MEDS: METHOCARBAMOL 500 MG TABLET PO PRN ×4 (00:07→20:39)
[2020-04-20] MEDS: PANTOPRAZOLE 40 MG TABLET PO SCH (08:01)
[2020-04-20] MEDS: ONDANSETRON 4 MG/2 ML VIAL IV PRN ×3 (08:23→22:49)
[2020-04-20 09:31] LABS: Basophils % 0.3 % (0.0-0.8); Eosinophils # 0.1 10*3/uL (0.0-0.87); Eosinophils % 0.4 % (0.00-10.9); Hematocrit 24.3 VOL% (35.7-47.0); Hemoglobin 7.6 GM/DL (12.0-16.0); Immature Granulocytes % 0.9 %; Immature Granulocytes Absolute 0.11 #; Lymphocytes # 0.7 10*3/uL (1.4-4.0); Mean Corpuscular HGB Conc 31.3 GM/DL (32-36); Mean Corpuscular Volume 86.2 FL (87-102); Mean Platelet Volume 9.7 FL (9.6-12.0); Monocytes % 7.9 % (1.7-12.7); Neutrophils % 84.5 % (38.7-73.9); Platelet Count 142 T/CUMM (130-400); Red Blood Count 2.82 MC/CUMM (3.8-5.5); Red Cell Distribution Width 18.3 % (9.3-17.3); White Blood Count 11.8 T/CUMM (4-12)
[2020-04-20 09:50] LABS: Alanine Aminotransferase < 6 U/L (13-56); Alkaline Phosphatase 78 U/L (45-117); Aspartate Amino Transferase 30 U/L (0-37); Blood Urea Nitrogen 38 MG/DL (7-18); Calcium 9.2 MG/DL (8.5-10.1); Carbon Dioxide 20 MMOL/L (21-32); Estimated Glom Filtration Rate 7 ML/MIN; Glucose 86 MG/DL (74-106); Osmolality,Calculated 265.9 MOS/KG (273-304); Potassium 4.7 MMOL/L (3.5-5.1); Sodium 129 MMOL/L (136-145); Total Protein 7.3 G/DL (6.4-8.3)
[2020-04-20] MEDS ORDERED: HEPARIN 10,000 UNIT/10 ML VIAL IV PRN (10:10)
[2020-04-20] MEDS ORDERED: cloNIDine 0.1 MG TABLET PO SCH (11:00)
[2020-04-20] MEDS: carvediloL 3.125 MG TABLET PO SCH ×2 (13:42→20:39)
[2020-04-20] MEDS: ENOXAPARIN 30 MG/0.3 ML SYRINGE SUBCUT SCH (13:42)
[2020-04-20] MEDS: MULTIVITAMIN (CENTRUM) TABLET PO SCH (13:42)
[2020-04-20] MEDS: FERROUS SULFATE 325 MG TABLET PO SCH ×2 (14:08→20:39)
[2020-04-20] MEDS: RIFAXIMIN 200 MG PO SCH ×2 (15:29→22:34)
[2020-04-20] MEDS: MIRTAZAPINE 15 MG TABLET PO SCH (20:39)
[2020-04-20] MEDS: traZODone 50 MG TABLET PO SCH (20:39)
[2020-04-21 05:50] LABS: Basophils % 0.3 % (0.0-0.8); Eosinophils # 0.2 10*3/uL (0.0-0.87); Eosinophils % 1.7 % (0.00-10.9); Hematocrit 24.8 VOL% (35.7-47.0); Hemoglobin 7.6 GM/DL (12.0-16.0); Immature Granulocytes Absolute 0.11 #; Lymphocytes # 1.2 10*3/uL (1.4-4.0); Lymphocytes % 11.5 % (21.3-54.2); Mean Corpuscular HGB Conc 30.6 GM/DL (32-36); Mean Corpuscular Volume 87.6 FL (87-102); Mean Platelet Volume 9.9 FL (9.6-12.0); Monocytes % 13.8 % (1.7-12.7); NRBC # 0.02 10*3/uL; Neutrophils % 71.7 % (38.7-73.9); Platelet Count 217 T/CUMM (130-400); Red Blood Count 2.83 MC/CUMM (3.8-5.5); Red Cell Distribution Width 18.1 % (9.3-17.3); White Blood Count 10.8 T/CUMM (4-12)
[2020-04-21 06:02] LABS: INR 1.5; PT Patient Result 15.5 SECS (9.8-11.9); Partial Thromboplastin Time 39.3 SECS (23.9-33.8)
[2020-04-21 06:21] LABS: Osmolality,Calculated 267.5 MOS/KG (273-304); Potassium 4.2 MMOL/L (3.5-5.1)
[2020-04-21] MEDS ORDERED: POTASSIUM CHLORIDE RIDER 10 MEQ in PREMIX 1 EACH IV PRN (07:20)
[2020-04-21] MEDS ORDERED: diphenhydrAMINE CAP 25 MG CAPSULE PO ONE (07:20)
[2020-04-21] MEDS ORDERED: DIAZEPAM 5 MG TABLET PO ONE (07:20)
[2020-04-21] MEDS ORDERED: MAGNESIUM SULF RIDER 2 GM in PREMIX 1 EACH IV PRN (07:20)
[2020-04-21] MEDS ORDERED: LIDOCAINE 1% 20 ML VIAL ONE (08:06)
[2020-04-21] MEDS ORDERED: MIDAZOLAM 2 MG/2 ML VIAL ONE (08:11)
[2020-04-21] MEDS ORDERED: fentaNYL 100 MCG/2 ML VIAL ONE (08:12)
[2020-04-21] MEDS ORDERED: HYDROmorphone 2 MG/1 ML VIAL ONE (08:40)
[2020-04-21] MEDS: RIFAXIMIN 200 MG PO SCH ×3 (09:00→21:02)
[2020-04-21 09:17] LABS: Total Protein 7.6 G/DL (6.4-8.3)
[2020-04-21] MEDS: MULTIVITAMIN (CENTRUM) TABLET PO SCH (10:03)
[2020-04-21] MEDS: FERROUS SULFATE 325 MG TABLET PO SCH ×3 (10:04→21:00)
[2020-04-21] MEDS: PANTOPRAZOLE 40 MG TABLET PO SCH (10:04)
[2020-04-21] MEDS: KETOROLAC 15 MG/1 ML VIAL IV PRN ×2 (12:07→18:38)
[2020-04-21] MEDS: traZODone 50 MG TABLET PO SCH (21:00)
[2020-04-21] MEDS: MIRTAZAPINE 15 MG TABLET PO SCH (21:00)
[2020-04-22] MEDS: ACETAMINOPHEN 325 MG TABLET PO PRN (01:27)
[2020-04-22] MEDS: METHOCARBAMOL 500 MG TABLET PO PRN ×2 (03:54→12:38)
[2020-04-22 06:02] LABS: Basophils % 0.3 % (0.0-0.8); Eosinophils # 0.2 10*3/uL (0.0-0.87); Hematocrit 21.5 VOL% (35.7-47.0); Hemoglobin 6.6 GM/DL (12.0-16.0); Immature Granulocytes % 1.2 %; Immature Granulocytes Absolute 0.12 #; Lymphocytes # 1.1 10*3/uL (1.4-4.0); Lymphocytes % 11.1 % (21.3-54.2); Mean Corpuscular HGB Conc 30.7 GM/DL (32-36); Mean Corpuscular Volume 87.8 FL (87-102); Mean Platelet Volume 9.4 FL (9.6-12.0); Monocytes % 11.5 % (1.7-12.7); Neutrophils % 73.9 % (38.7-73.9); Platelet Count 154 T/CUMM (130-400); Red Blood Count 2.45 MC/CUMM (3.8-5.5); White Blood Count 9.7 T/CUMM (4-12)
[2020-04-22 06:20] LABS: Calcium 8.5 MG/DL (8.5-10.1); Osmolality,Calculated 263.9 MOS/KG (273-304); Potassium 3.9 MMOL/L (3.5-5.1)
[2020-04-22 06:41] LABS: Barbiturates Screen,Urine Negative (Negative); Benzodiazepines Screen,Urine Positive (Negative); Cannabinoid Screen,Urine Negative (Negative); Opiate Screen,Urine Positive (Negative); Phencyclidine Screen,Urine Negative (Negative)
[2020-04-22] MEDS: MULTIVITAMIN (CENTRUM) TABLET PO SCH (08:49)
[2020-04-22] MEDS: PANTOPRAZOLE 40 MG TABLET PO SCH (08:49)
[2020-04-22] MEDS: FERROUS SULFATE 325 MG TABLET PO SCH ×3 (08:49→21:16)
[2020-04-22] MEDS: RIFAXIMIN 200 MG PO SCH ×3 (08:50→21:15)
[2020-04-22] MEDS ORDERED: SODIUM CHLORIDE 0.9% 1,000 ML IV PRN (09:46)
[2020-04-22 09:57] LABS: INR 1.3; PT Patient Result 12.7 SECS (9.8-11.9)
[2020-04-22] MEDS: ONDANSETRON 4 MG/2 ML VIAL IV PRN (17:13)
[2020-04-22] MEDS: KETOROLAC 15 MG/1 ML VIAL IV PRN (18:53)
[2020-04-22] MEDS: MIRTAZAPINE 15 MG TABLET PO SCH (21:16)
[2020-04-22] MEDS: traZODone 50 MG TABLET PO SCH (21:16)
[2020-04-23] MEDS: METHOCARBAMOL 500 MG TABLET PO PRN ×2 (01:48→16:50)
[2020-04-23 05:37] LABS: Basophils % 0.4 % (0.0-0.8); Eosinophils # 0.2 10*3/uL (0.0-0.87); Eosinophils % 2.6 % (0.00-10.9); Hemoglobin 9.1 GM/DL (12.0-16.0); Immature Granulocytes % 0.9 %; Immature Granulocytes Absolute 0.07 #; Lymphocytes # 0.9 10*3/uL (1.4-4.0); Lymphocytes % 11.1 % (21.3-54.2); Mean Corpuscular HGB Conc 31.4 GM/DL (32-36); Mean Corpuscular Volume 90.9 FL (87-102); Mean Platelet Volume 8.4 FL (9.6-12.0); Monocytes % 12.5 % (1.7-12.7); Neutrophils % 72.5 % (38.7-73.9); Platelet Count 122 T/CUMM (130-400); Red Blood Count 3.19 MC/CUMM (3.8-5.5); Red Cell Distribution Width 17.2 % (9.3-17.3); White Blood Count 7.8 T/CUMM (4-12)
[2020-04-23 05:38] LABS: Hematocrit 28.5 VOL% (35.7-47.0)
[2020-04-23 05:48] LABS: INR 1.1; PT Patient Result 12.2 SECS (9.8-11.9); Partial Thromboplastin Time 33.7 SECS (23.9-33.8)
[2020-04-23] MEDS ORDERED: EPOETIN ALFA-EPBX 2,000 UNIT/ML VIAL SUBCUT ONE (08:26)
[2020-04-23] MEDS: PANTOPRAZOLE 40 MG TABLET PO SCH (09:33)
[2020-04-23] MEDS: carvediloL 3.125 MG TABLET PO SCH (09:33)
[2020-04-23] MEDS: FERROUS SULFATE 325 MG TABLET PO SCH ×2 (09:33→14:27)
[2020-04-23] MEDS: MULTIVITAMIN (CENTRUM) TABLET PO SCH (09:33)
[2020-04-23] MEDS: RIFAXIMIN 200 MG PO SCH ×2 (09:33→15:05)
[2020-04-23] MEDS: ONDANSETRON 4 MG/2 ML VIAL IV PRN (21:47)
[2020-04-23] MEDS ORDERED: PROMETHAZINE 25 MG/1 ML VIAL IM PRN (23:32)
[2020-04-24] MEDS: RIFAXIMIN 200 MG PO SCH ×2 (00:11→09:18)
[2020-04-24] MEDS: MIRTAZAPINE 15 MG TABLET PO SCH (00:22)
[2020-04-24] MEDS: traZODone 50 MG TABLET PO SCH (00:23)
[2020-04-24] MEDS: carvediloL 3.125 MG TABLET PO SCH ×2 (00:23→09:15)
[2020-04-24] MEDS: FERROUS SULFATE 325 MG TABLET PO SCH ×2 (00:24→09:14)
[2020-04-24] MEDS: ONDANSETRON 4 MG/2 ML VIAL IV PRN (01:41)
[2020-04-24 05:50] LABS: Basophils % 0.5 % (0.0-0.8); Eosinophils # 0.3 10*3/uL (0.0-0.87); Eosinophils % 3.2 % (0.00-10.9); Hematocrit 29.2 VOL% (35.7-47.0); Hemoglobin 9.1 GM/DL (12.0-16.0); Immature Granulocytes % 1.3 %; Immature Granulocytes Absolute 0.11 #; Lymphocytes # 1.1 10*3/uL (1.4-4.0); Lymphocytes % 12.1 % (21.3-54.2); Mean Corpuscular HGB Conc 31.2 GM/DL (32-36); Mean Platelet Volume 9.3 FL (9.6-12.0); Monocytes % 11.9 % (1.7-12.7); Platelet Count 128 T/CUMM (130-400); Red Blood Count 3.28 MC/CUMM (3.8-5.5); Red Cell Distribution Width 17.6 % (9.3-17.3); White Blood Count 8.7 T/CUMM (4-12)
[2020-04-24 06:16] LABS: Albumin 1.8 G/DL (3.4-5.0); Bilirubin,Total 1.5 MG/DL (0.2-1.0); Calcium 8.6 MG/DL (8.5-10.1); Osmolality,Calculated 261.1 MOS/KG (273-304); Potassium 3.7 MMOL/L (3.5-5.1); Total Protein 6.4 G/DL (6.4-8.3)
[2020-04-24] MEDS: MULTIVITAMIN (CENTRUM) TABLET PO SCH (09:16)
[2020-04-24] MEDS: PANTOPRAZOLE 40 MG TABLET PO SCH (09:16)
[2020-04-24] MEDS ORDERED: ALTEPLASE 2 MG VIAL IV PRN (11:01)
[2020-04-24 14:49] VITALS: BP 100/60
== END 2020-04-24 16:33 | disposition home or self-care (01) | DRG 314 ==
LOC: N.TELES 11:25 → SUATTDRO 11:25 → INTOOBSV 11:25
PROVIDERS: ADMIT Internal Medicine; ATTEND Family Medicine